=== PATIENT | female | born 2000 | race Caucasian/White ===

== ENCOUNTER 2020-11-29 16:27 | Emergency (ER) | payer SELFPAY ==
--- NOTE | 2020-11-29 17:01 | PC.NURSE ---
CALLED WR PATIENT X 2 NO REPSPONSE
== END 2020-11-29 19:07 | disposition left against medical advice (07) ==
PROVIDERS: Emergency Provider Internal Medicine
DX: Z76.0 Encounter for issue of repeat prescription (principal)